=== PATIENT | male | born 1970 | race Caucasian/White ===

== ENCOUNTER 2016-12-01 17:30 | Emergency (ER) | payer BC ==
[2016-12-01 17:39] VITALS: BP 117/80
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
[2016-12-01] MEDS ORDERED: Sodium Chloride 0.9% 1,000 ML IV SCH (17:45)
--- NOTE | 2016-12-01 18:18 | CT ---
Head CT Technique: Multiple axial sections through the brain were obtained. Intravenous contrast was not utilized. Comparison: No previous intracranial imaging. Findings: Ventricles along with basal cisterns and sulci over the convexities are mildly prominent for the patient's age. No abnormal parenchymal densities are seen. Minimal area of increased density is seen within the cortex within the posterior left frontal convexity which is felt compatible with very minimal cortical contusion. No other findings of intracranial bleeding are seen. No midline shift or mass effect is seen. Bone window settings were obtained which show the mastoid sinuses and middle ear cavities are clear. Minimal mucosal thickening is seen within the right sphenoid sinus. No acute calvarial reality is seen. Impression: 1. Minimal sinus finding which is felt to be incidental. 2. Mild atrophy which is more prominent than usually seen in a patient of this age. 3. Minimal area of cortical contusion felt to be present within the posterior left frontal convexity. Diagnostic code #3
--- NOTE | 2016-12-01 18:22 | CT ---
CT cervical spine Technique: Multiple axial sections through the cervical spine were obtained. Reconstructed sagittal and coronal images were reviewed. Findings: Visualized mastoid sinuses and middle ear cavities are clear. Posterior skull base is intact. Vertebral body heights are maintained. Mild disc space narrowing is seen at C5-6. Slight degenerative change is noted between the dens and anterior arch of C1. Mild neural foraminal stenosis noted at C3-4 on the left side. Other neural foramina are patent. No central canal stenosis is seen. No acute fracture or abnormal subluxation is seen. Slight degenerative spurring is noted within the right uncovertebral joint at C4-5. Impression: 1. Mild degenerative change as noted above. 2. No acute fracture or abnormal subluxation is seen. Diagnostic code #2
--- NOTE | 2016-12-01 18:24 | CT ---
CT facial bones Technique: Multiple axial sections through the facial bones were obtained. Reconstructed sagittal and coronal imaging was obtained. Findings: Small metallic foreign body projected within the soft tissues of the chin at the level of the lower mandible. This finding measures about 3.6 mm. Moderate to marked mucosal thickening is seen within both maxillary sinuses with possible air-fluid levels within both maxillary sinuses. Right and left globes are symmetric. No facial bone fracture is identified. Impression: 1. Sinus disease suspicious for pre-existing acute sinusitis. 2. Metallic foreign body is projected within the soft tissues of the chin. 3. No acute bony abnormality is identified on CT study of the facial bones. Diagnostic code #3
[2016-12-01] MEDS ORDERED: Ondansetron 4 MG/2 ML SDV IVPUSH ONE (19:01)
[2016-12-01] MEDS ORDERED: HYDROmorphone 0.5 MG/0.5 ML Syringe IVPUSH ONE (19:01)
--- NOTE | 2016-12-02 16:19 | CR ---
Right clavicle: Two views of the right clavicle were obtained. Comparison: No previous study. Comminuted and displaced fracture is seen within the mid one third diaphysis of the clavicle. No additional bony abnormality is seen on this study. Impression: 1. Comminuted and displaced right clavicle fracture. Diagnostic code #3
--- NOTE | 2016-12-02 16:19 | CR ---
Chest: Portable view of the chest was obtained. Comparison: No previous chest x-ray. Right clavicle fracture is noted. No other bony abnormality is appreciated. Heart size and mediastinum are normal. Lungs are clear. Impression: 1. Displaced right clavicle fracture. 2. Nothing acute is otherwise seen on portable chest x-ray. Diagnostic code #2
== END 2016-12-01 19:29 | disposition home or self-care (01) ==
LOC: JD.ED 17:30
DX: S42.001A Fracture of unspecified part of right clavicle, initial encounter for closed fracture (principal); S09.90XA Unspecified injury of head, initial encounter; S00.33XA Contusion of nose, initial encounter; V28.0XXA Motorcycle driver injured in noncollision transport accident in nontraffic accident, initial encounter; F10.120 Alcohol abuse with intoxication, uncomplicated; G89.29 Other chronic pain; M54.5 Low back pain; M19.90 Unspecified osteoarthritis, unspecified site; F17.200 Nicotine dependence, unspecified, uncomplicated
CPT/HCPCS: 36415; 70460; 70486; 71010; 72125; 73000; 80053; 83690; 85025; 96361; 96374; 96375; 99285; G0480; J1170; J2405; J7040; 99284

== ENCOUNTER 2016-12-10 09:16 | Day surgery (SDC) | payer BC ==
[~2016-12-10 09:16] MED LIST: Lidocaine 1%/Sod Bicarbonate in NS 8.4% 1 ML Syringe IV PRN; Sodium Chloride 0.9% 10 ML Syringe FLUSH PRN
[2016-12-10] MEDS: Lactated Ringers 1,000 ML IV SCH ×2 (09:40→13:58)
--- NOTE | 2016-12-10 10:05 | PCM.PREANE ---
Preanesthetic Assessment - Anesthesia/Transfusion/Family Hx Anesthesia History: No Prior Anesthesia Family History of Anesthesia Reaction: No Transfusion History: Prior Transfusion Without Reaction - Review of Systems General: No Symptoms, Fatigue Pulmonary: No Symptoms Cardiovascular: No Symptoms Gastrointestinal: No symptoms Neurological: No Symptoms Other: Reports: Liver Problems (cirrosis) - Physical Assessment NPO Status Date: 12/09/16 NPO Status Time: 21:30 Pulse: 76 O2 Sat by Pulse Oximetry: 94 Respiratory Rate: 16 Blood Pressure: 128/87 Temperature: 36.2 C Vital Signs: Last Vital Signs Temp 36.2 C 12/10/16 09:20 Pulse 76 12/10/16 09:20 Resp 16 12/10/16 09:20 BP 128/87 12/10/16 09:20 Pulse Ox 94 L 12/10/16 09:20 Height: 1.98 m Weight: 107.048 kg ASA Class: 3 Mental Status: Alert & Oriented x3 Dentition: Reports: Partial (upper) Thyro-Mental Finger Breadths: 3 Mouth Opening Finger Breadths: 3 ROM/Head Extension: Full Lungs: Clear to auscultation, Normal respiratory effort Cardiovascular: Regular Rate, Regular Rhythm, No Murmurs - Lab Values: Laboratory Last Values WBC 2.94 K/mm3 (4.23-9.07) L 12/10/16 09:40 RBC 4.99 M/mm3 (4.63-6.08) 12/10/16 09:40 Hgb 16.9 gm/L (13.7-17.5) 12/10/16 09:40 Hct 49.0 % (40.1-51.0) 12/10/16 09:40 MCV 98.2 fl (79.0-92.2) H 12/10/16 09:40 MCH 33.9 pg (25.7-32.2) H 12/10/16 09:40 MCHC 34.5 g/dl (32.2-35.5) 12/10/16 09:40 RDW Std Deviation 46.1 fL (35.1-43.9) H 12/10/16 09:40 Plt Count 89 K/mm3 (163-337) L 12/10/16 09:40 MPV 11.4 fl (9.4-12.3) 12/10/16 09:40 Neut % (Auto) 68.2 % (34.0-67.9) H 12/10/16 09:40 Lymph % (Auto) 15.6 % (21.8-53.1) L 12/10/16 09:40 [place] % (Auto) 13.9 % (5.3-12.2) H 12/10/16 09:40 Eos % (Auto) 1.7 (0.8-7.0) 12/10/16 09:40 Baso % (Auto) 0.3 % (0.1-1.2) 12/10/16 09:40 Neut # (Auto) 2.00 K/mm3 (1.78-5.38) 12/10/16 09:40 Lymph # (Auto) 0.46 K/mm3 (1.32-3.57) L 12/10/16 09:40 [place] # (Auto) 0.41 K/mm3 (0.30-0.82) 12/10/16 09:40 Eos # (Auto) 0.05 K/mm3 (0.04-0.54) 12/10/16 09:40 Baso # (Auto) 0.01 K/mm3 (0.01-0.08) 12/10/16 09:40 - Imaging/EKG Impressions: on chart Sinus rhythm - Allergies Allergies/Adverse Reactions: Allergies Allergy/AdvReac Type Severity Reaction Status Date / Time No Known Allergies Allergy Verified 12/07/16 11:13 - Anesthesia Plan Pre-Op Medication Ordered: None - Acknowledgements Anesthesia Type Planned: General Anesthesia Pt an Appropriate Candidate for the Planned Anesthesia: Yes Alternatives and Risks of Anesthesia Discussed w Pt/Guardian: Yes Pt/Guardian Understands and Agrees with Anesthesia Plan: Yes PreAnesthesia Questionnaire HEENT History: Reports: Impaired vision, Other (see below) Other HEENT History: upper plate, reading glasses Cardiovascular History: Reports: None Respiratory History: Reports: Other (see below) Other Respiratory History: chronic cough Gastrointestinal History: Reports: Cirrhosis Genitourinary History: Reports: Other (see below) Other Genitourinary History: dysuria 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 Musculoskeletal History: Reports: Back pain, chronic, Osteoarthritis Neurological History: Reports: Headaches, chronic Psychiatric History: Reports: Addiction, Other (see below) Other Psychiatric History: alcohol abuse Endocrine/Metabolic History: Reports: None Hematologic History: Reports: Anemia, Idiopathic thrombocytopenia Immunologic History: Reports: None Oncologic (Cancer) History: Reports: None Dermatologic History: Reports: Other (see below) Other Dermatologic History: sebaceous cyst - Past Surgical History GI Surgical History: Reports: Other (see below) Other GI Surgeries/Procedures: paracentesis Musculoskeletal Surgical History: Reports: Other (see below) Other Musculoskeletal Surgeries/Procedures:: ankle surgery, R clavicle fracture - SUBSTANCE USE Smoking Status *Q: Current Every Day Smoker Tobacco Use Within Last Twelve Months: Cigarettes Second Hand Smoke Exposure: No Days Per Week of Alcohol Use: 2 Number of Drinks Per Day: 2 Total Drinks Per Week: 4 Recreational Drug Use History: No - HOME MEDS Home Medications: Home Meds oxyCODONE HCl/Acetaminophen [Percocet 5-325 mg Tablet] 1 - 2 each PO Q4H PRN # 24 tablet 12/01/16 [Rx] - CURRENT (IN HOUSE) MEDS Current Meds: Current Medications Lactated Ringer's (Ringers, Lactated) 1,000 mls @ 125 mls/hr IV ASDIRECTED SANGEETHA Stop: 12/10/16 23:00 Lidocaine/Sodium Bicarbonate (Buffered Lidocaine 1% In Ns 8.4%) 0.25 ml IV ONETIME PRN PRN Reason: Prior to IV Start Stop: 12/10/16 18:00 Sodium Chloride (Saline Flush) 10 ml FLUSH ASDIRECTED PRN PRN Reason: Keep Vein Open Stop: 12/10/16 18:00 Discontinued Medications Bupivacaine HCl (Marcaine 0.25%) Confirm Administered Dose 30 ml .ROUTE .STK- MED ONE Stop: 12/10/16 09:46
[2016-12-10] MEDS ORDERED: Rocuronium 50 MG/5 ML Vial ONE ×2 (11:03→12:44)
[2016-12-10] MEDS ORDERED: Ondansetron 4 MG/2 ML SDV ONE (11:03)
[2016-12-10] MEDS ORDERED: Propofol 200 MG/20 ML SDV ONE ×2 (11:04→11:37)
[2016-12-10] MEDS ORDERED: Lidocaine 1% 4 ML ONE (11:04)
[2016-12-10] MEDS ORDERED: Midazolam 1 MG/ML 2 ML SDV ONE (11:04)
[2016-12-10] MEDS ORDERED: fentaNYL 250 MCG/5 ML SDV ONE ×2 (11:04→12:07)
[2016-12-10] MEDS ORDERED: ceFAZolin 1 GM Vial ONE (11:11)
[2016-12-10] MEDS ORDERED: Lactated Ringers 1,000 ML ONE (12:06)
[2016-12-10] MEDS: Bupivacaine 0.25% 30 ML SDV ONE ×2 (12:14→13:00)
[2016-12-10] MEDS ORDERED: HYDROmorphone 1 MG/ML Syringe ONE (12:32)
--- NOTE | 2016-12-10 13:43 | PCM.POSTAN ---
POST ANESTHESIA ASSESSMENT - MENTAL STATUS Mental Status: somnolent - VITAL SIGNS Pulse Rate: 85 SaO2: 91 Resp Rate: 13 Blood Pressure: 128/67 Temperature: 37.1 C - RESPIRATORY Respiratory Status: respiratory rate WNL, airway patent, O2 saturation stable - CARDIOVASCULAR CV Status: pulse rate WNL, blood pressure stable - GASTROINTESTINAL GI Status: no symptoms - PAIN Pain Score: 0 - POST OP HYDRATION Hydration Status: adequate & stable - OBSERVATIONS Free Text/Narrative:: no anesthesia complications noted
--- NOTE | 2016-12-10 13:52 | CR ---
Right clavicle: Four fluoroscopic spot views were obtained of the right clavicle. Study performed utilizing C arm device. Comparison: Previous right clavicle study of 12/01/16. Study shows reduction and fixation of previous clavicle fracture with plate and screws. Fluoroscopy time given as 17.5 seconds. Impression: 1. Fixation of previous clavicle fracture. Diagnostic code #2
--- NOTE | 2016-12-10 14:08 | PCM.OPNOTE ---
- General Post-Op/Procedure Note Date of Surgery/Procedure: 12/10/16 Operative Procedure(s): open reduction internal fixation of comminuted right midshaft clavicle fracture Pre Op Diagnosis: closed right midshaft clavicle fracture Post-Op Diagnosis: Same Anesthesia Technique: General ET tube, Local Primary Surgeon: César Spicer Anesthesia Provider: Prashanth Quigley Steel Barrel Reamer: Tawana Haynes Steel Barrel Reamer: Bindu Garcia EBL in mLs: 200 Complications: None Condition: Good
[2016-12-10] MEDS ORDERED: fentaNYL 100 MCG/2 ML SDV IVPUSH PRN (14:30)
[2016-12-10] MEDS ORDERED: HYDROmorphone 0.5 MG/0.5 ML Syringe IVPUSH PRN (14:30)
[2016-12-10 15:30] VITALS: BP 126/72
--- NOTE | 2016-12-11 22:00 | OR ---
DATE OF OPERATION: 12/10/2016 SURGEON: César Spicer MD OPERATION PERFORMED: Open reduction and internal fixation of comminuted right midshaft clavicle fracture. PREOPERATIVE DIAGNOSIS: Closed right midshaft clavicle fracture. POSTOPERATIVE DIAGNOSIS: Closed right midshaft clavicle fracture. ANESTHESIA: General endotracheal intubation with local. ANESTHESIA PROVIDER: CHARGE POSTER: Tawana Haynes PA-C, and Bindu Garcia M.D. ESTIMATED BLOOD LOSS: 200 mL. COMPLICATIONS: None. CONDITION: Stable. DESCRIPTION OF PROCEDURE: The patient was identified in the preop holding area. Proper site was marked and identified by the surgeon. The patient taken the OR after adequate anesthesia, the patient was placed supine on a triage table and the right shoulder was then sterilely prepped and draped in the usual sterile fashion. OR time-out was performed. Patient received 2 g IV Ancef. At this time, the patient was placed in a reverse Trendelenburg position and standard incision was made over the midshaft clavicle. This was taken down through the platysma and the fascia and the fracture site was identified. There was significant amount of healing tissue noted around the fracture site. This was then taken down with a curette and rongeur. The fracture site was identified. There was noted to be a comminuted posterior piece and then a comminuted large butterfly anterior piece. At this time, a gjaln-ss-sjveq reduction clamp was used to fixate the butterfly fragment to the distal fragment and two 2.7 cortical screws were placed and lagged my intent across the butterfly fragment into the lateral clavicle. This was found to have adequate fixation both visually and under fluoroscopic guidance. At this time, the main medial fragment was then reduced to these fragments and was found to have a near anatomic reduction. An 8-hole [place] locking bridging plate for clavicle was then placed and found to be in adequate position on both AP and fluoroscopic views of the clavicle. At this time, a 3.5 cortical screw was placed in the medial fragment and then a 3.5 cortical screw was placed in the lateral fragment under compression technique. At this time, two more cortical screws were placed, one on either side of the fracture site and then 4 total 3.5 locking screws were placed, 2 on either side of the fracture. It was found to have adequate fixation, reduction of both on fluoroscopic views and under direct visualization. At this time, adequate saline was irrigated through the wound. It was decided since the patient is a heavy smoker at this time to use Vitoss, so Vitoss was then used around the fracture site at this time and packed around the fracture site. The platysma layer was then closed using 0 Vicryl in running fashion. 2-0 Vicryl was used subcutaneously, and Prineo was used for the skin. The patient was placed in a sterile soft dressing and was sent to the PACU in stable condition. He tolerated the procedure well. MMODAL /[id number]
== END 2016-12-10 15:25 | disposition home or self-care (01) ==
LOC: JD.SDS 09:16
PROVIDERS: ATTEND Orthopaedic Surgery
PROC: 0PS904Z Reposition Right Clavicle with Internal Fixation Device, Open Approach (ICD-10-PCS; principal; 2016-12-10)
DX: S42.021A Displaced fracture of shaft of right clavicle, initial encounter for closed fracture (principal); F17.210 Nicotine dependence, cigarettes, uncomplicated; K70.30 Alcoholic cirrhosis of liver without ascites; F10.20 Alcohol dependence, uncomplicated; D69.59 Other secondary thrombocytopenia; D69.3 Immune thrombocytopenic purpura; M19.90 Unspecified osteoarthritis, unspecified site; Z98.890 Other specified postprocedural states
CPT/HCPCS: 23515; 36415; 76000; 80053; 85025; C1713; C1768; G0480; J0690; J1170; J2250; J2405; J3010; J7120; 01630; J2704; J3490